=== PATIENT | female | born 1960 | race Two or more races ===

== ENCOUNTER 2024-11-08 07:45 | Day surgery (SDC) | payer BC, SELFPAY ==
--- NOTE | 2024-11-05 08:12 | EKG_ITS ---
[facility] Test Date: 2024-11-05 Pat Name: RAMIRO MONTOYA Department: Room: - Gender: Female Blemish Remover: JASS : 1960 Requested By: Nuno Dixon Order Number: [id number] Reading MD: Nuno Dixon Measurements Intervals Klemme Rate: 51 P: 17 DC: 147 QRS: -8 QRSD: 147 T: 12 QT: 472 QTc: 435 Interpretive Statements SINUS BRADYCARDIA RIGHT BUNDLE BRANCH BLOCK [120+ ms QRS DURATION, UPRIGHT V1, 40+ ms S IN I/aVL/V4/V5/V6] MODERATE VOLTAGE CRITERIA FOR LVH, CONSIDER NORMAL VARIANT [MEETS CRITERIA IN ONE OF: R(aVL), S(V1), R(V5), R(V5/V6)+S(V1)] Compared to ECG 06/12/2020 11:28:41 No significant changes /store/S0/[id number].pdf
[2024-11-05 13:23] LABS: INR 0.9 (0.9-1.3); Partial Thromboplastin Time 27.9 Seconds (22.0-36.0); Prothrombin Time 10.4 Seconds (9.0-12.2)
[2024-11-05 13:32] LABS: Alanine Aminotransferase 33 U/L (10-49); Albumin, Serum 4.7 gm/dL (3.4-4.8); Albumin/Globulin Ratio 1.7 (1.2-2.2); Alkaline Phosphatase 87 U/L (46-116); Anion Gap 6 (7-16); Aspartate Amino Transferase 27 U/L (0-34); BUN/Creatinine Ratio 19 Ratio (12-20); Bilirubin,Total 0.6 mg/dL (0.3-1.2); Blood Urea Nitrogen 13 mg/dL (9-23); Calcium 9.5 mg/dL (8.3-10.6); Calcium (Corrected) 9.5 mg/dL (8.5-10.1); Carbon Dioxide 32.8 mMol/L (20.0-31.0); Chloride 101 mMol/L (98-107); Creatinine (Component) 0.7 mg/dL (0.6-1.3); Globulin 2.7 gm/dL (2.3-3.5); Glucose 88 mg/dL (74-106); Osmolality,Calculated 278 (275-295); Potassium 3.6 mMol/L (3.4-5.1); Sodium 140 mMol/L (136-145); Total Protein 7.4 gm/dL (5.7-8.2); eGFR > 60 See Note
[2024-11-08 08:30] VITALS: BP 122/54; PULSE 48; RESP 17; TEMP 36.2; O2SAT 95; BMI 25.1
[2024-11-08] MEDS: RINGERS LACTATED 1000 ML 1,000 ML 20 ML IV (09:59)
[2024-11-08 10:23] VITALS: BP 167/81; PULSE 65; RESP 8; O2SAT 97
[2024-11-08 10:33] VITALS: BP 137/72; PULSE 61; RESP 15; O2SAT 97
[2024-11-08 10:43] VITALS: BP 112/53; PULSE 53; RESP 12; O2SAT 94
[2024-11-08 10:53] VITALS: BP 125/63; PULSE 62; RESP 12; O2SAT 94
--- NOTE | 2024-11-08 11:08 | SUR.PHASEII ---
Pt reports having mild but tolerable pain in the lower abdomen. Pt is encouraged to be more active once she is at home. Pt's abdomen is soft to touch. d/c instructions given to pt and spouse.
== END 2024-11-08 11:08 | disposition home or self-care (01) ==
PROVIDERS: Anesthesiology; PCP Family Medicine; Referring Provider Specialist; Visit Provider Specialist
PROC: 0DBE8ZX Excision of Large Intestine, Via Natural or Artificial Opening Endoscopic, Diagnostic (ICD-10-PCS; CPT 45380; principal; 2024-11-08 09:15)
DX: K63.89 Other specified diseases of intestine (principal); K62.89 Other specified diseases of anus and rectum; K57.30 Diverticulosis of large intestine without perforation or abscess without bleeding; Z01.810 Encounter for preprocedural cardiovascular examination; K64.8 Other hemorrhoids
CPT/HCPCS: 45380; 36415; 80053; 85610; 85730; 93005; A4649; J7120

== ENCOUNTER → 2024-12-10 | Outpatient (CLI) | payer BC, SELFPAY ==
[2024-12-10 08:46] LABS: Basophils # (Auto) 0.1 Thou/mm3 (0.0-0.2); Basophils % (Auto) 1 % (0-2.5); Eosinophils # (Auto) 0.3 Thou/mm3 (0.0-0.5); Eosinophils % (Auto) 5 % (0-10); Hematocrit 40.8 % (36.0-46.0); Hemoglobin 13.8 g/dL (12.0-16.0); Immature Granulocytes % (Auto) 0 % (0-0); Immature Granulocytes Auto 0.02 Thou/mm3 (0.00-0.00); Lymphocytes # (Auto) 2.4 Thou/mm3 (1.0-4.8); Lymphocytes % (Auto) 33 % (10-50); Mean Corpuscular HGB Conc 33.8 g/dl (31.0-37.0); Mean Corpuscular Hemoglobin 30.3 pg (25.0-35.0); Mean Corpuscular Volume 90 fL (80-100); Monocytes # (Auto) 0.4 Thou/mm3 (0.0-0.8); Monocytes % (Auto) 6 % (0-12); Neutrophils # (Auto) 4.1 Thou/mm3 (1.8-7.7); Neutrophils % (Auto) 56 % (37-80); Nucleated Red Blood Cell % 0 /100 WBC (0); Platelet Count 357 Thou/mm3 (140-440); RDW Standard Deviation 44.4 fL (36.4-46.3); Red Blood Count 4.55 Miln/mm3 (4.00-5.20); White Blood Count 7.3 Thou/mm3 (3.6-11.0)
[2024-12-10 08:59] LABS: Glucose Estimated Average 117 mg/dL (80-131); Hemoglobin A1C 5.7 % Hgb (4.8-6.0)
[2024-12-10 09:12] LABS: Alanine Aminotransferase 22 U/L (10-49); Albumin, Serum 4.5 gm/dL (3.4-4.8); Albumin/Globulin Ratio 1.6 (1.2-2.2); Alkaline Phosphatase 78 U/L (46-116); Anion Gap 5 (7-16); Aspartate Amino Transferase 21 U/L (0-34); BUN/Creatinine Ratio 20 Ratio (12-20); Bilirubin,Total 0.6 mg/dL (0.3-1.2); Blood Urea Nitrogen 16 mg/dL (9-23); C-Reactive Protein < 0.5 mg/dL (0.0-0.9); Calcium 9.1 mg/dL (8.3-10.6); Calcium (Corrected) 9.1 mg/dL (8.5-10.1); Carbon Dioxide 32.4 mMol/L (20.0-31.0); Chloride 106 mMol/L (98-107); Cholesterol 125 mg/dL (132-200); Creatinine (Component) 0.8 mg/dL (0.6-1.3); Globulin 2.8 gm/dL (2.3-3.5); Glucose 115 mg/dL (74-106); HDL Cholesterol 42 mg/dL (40-60); LDL Cholesterol,Calculated 65 mg/dL (0-130); Osmolality,Calculated 287 (275-295); Potassium 3.9 mMol/L (3.4-5.1); Sodium 143 mMol/L (136-145); Total Protein 7.3 gm/dL (5.7-8.2); Triglycerides 91 mg/dL (30-150); eGFR > 60 See Note
[2024-12-10 09:19] LABS: Sed Rate (ESR) 20 mm/hr (0-30)
[2024-12-10 09:24] LABS: Syphilis Nonreactive (Nonreactive)
[2024-12-10 09:50] LABS: Folate 15.38 ng/mL (>5.38); Hepatitis A Antibody IgM Non Reactive (Non React); Hepatitis B Core Antibody IgM Non Reactive (Non React); Hepatitis B Surface Antigen Non Reactive (Non React); Hepatitis C Antibody Non Reactive (Non React); Vitamin B12 324 pg/mL (211-911)
[2024-12-10 12:21] LABS: Chlamydia trachomatis PCR Negative (Not Detect); Neisseria Gonorrhoeae DNA PCR Negative (Not Detect); Trichomonas Negative (Negative)
[2024-12-10 16:49] LABS: RA Screen Negative (Negative)
[2024-12-20 07:27] LABS: ANA Screen, IFA POSITIVE (NEGATIVE)
[2024-12-20 07:28] LABS: CCP Antibody (IgG)* <16 Units; HIV Ag/Ab, 4th Gen NON-REACTIVE
== END | disposition home or self-care (01) ==
LOC: COPL 07:45
PROVIDERS: PCP Family Medicine; Referring Provider Internal Medicine; Visit Provider Internal Medicine
DX: E78.2 Mixed hyperlipidemia (principal); B96.89 Other specified bacterial agents as the cause of diseases classified elsewhere; G62.9 Polyneuropathy, unspecified; I10 Essential (primary) hypertension; M25.50 Pain in unspecified joint; N39.0 Urinary tract infection, site not specified; R30.0 Dysuria; Z11.3 Encounter for screening for infections with a predominantly sexual mode of transmission; Z76.89 Persons encountering health services in other specified circumstances; Z79.899 Other long term (current) drug therapy
CPT/HCPCS: 36415; 80053; 80061; 80074; 82607; 82746; 83036; 84443; 85025; 85652; 86038; 86140; 86200; 86430; 86780; 87389; 87491; 87591; 87661

== ENCOUNTER → 2025-01-18 | Outpatient (CLI) | payer BC, SELFPAY ==
--- NOTE | 2025-01-18 13:56 | XR_ITS ---
Examination: Cervical spine 3 views Technique one AP lateral coned AP odontoid cervical spine 3 views Date and time: January 18, 2025 1402 hours INDICATIONS: Patient states something stuck in the throat 3 weeks FINDINGS: Adequate alignment cervical vertebral bodies No cervical fracture Intact odontoid Advanced degenerative disc disease C5-C6, C6-C7 IMPRESSION: Advanced degenerative disc disease C5-C6, C6-C7
--- NOTE | 2025-01-18 14:00 | XR_ITS ---
Examination: Ultrasound soft tissue neck TECHNIQUE: Grayscale sonographic images soft tissue right Date and time: January 18, 2025 1415 hours INDICATIONS: Neck pain beginning one month ago. FINDINGS: Lymph nodes in the soft tissue neck at the area concern right neck 11 x 6 mm, 11 x 9 mm, 10 x 5 mm, 24 x 9 mm, 21 x 9 mm 12 x 6 mm IMPRESSION: Significant cervical lymphadenopathy Recommend CT soft tissue neck post intravenous contrast follow-up
== END | disposition home or self-care (01) ==
LOC: CDIM 13:49
PROVIDERS: PCP Internal Medicine
DX: M50.323 Other cervical disc degeneration at C6-C7 level (principal); R59.0 Localized enlarged lymph nodes
CPT/HCPCS: 72040; 76536